=== PATIENT | female | born 1965 | race Caucasian/White ===

== ENCOUNTER → 2016-06-21 | Outpatient (CLI) | payer BC ==
--- NOTE | 2016-06-21 12:33 | MA ---
Screening Digital Mammogram With Tomosynthesis Clinical Indications: Routine screening. Technique: Standard digital cephalocaudal and tomosynthesis mediolateral oblique projections are obt ained. The digital images were processed by the [employer] computer aided detection system. Comparison: March 2015, December 2012, September 2011 and August 2010 Breast density: B; There are scattered fibroglandular densities. Findings: CAD was reviewed. No suspicious findings are identified. Impression: Negative mammogram. BI-RADS 1. Recommendation: Routine screening is recommended in one year. [facility] will send a result letter to the patient. Negative mammography should not preclude additional workup of a clinically suspicious finding. The patient's information is entered into a reminder system with a target due date for her next mammo gram.
== END ==
LOC: FIMAGING 11:40
DX: Z12.31 Encounter for screening mammogram for malignant neoplasm of breast (principal)
CPT/HCPCS: G0202

== ENCOUNTER → 2016-08-02 | Outpatient (CLI) | payer BC, OTHER | LOC: FIMAGING 10:02 | DX: M25.552 Pain in left hip (principal) | CPT/HCPCS: 78305; A9503 ==

== ENCOUNTER 2017-08-29 20:39 | Emergency (ER) | payer BC ==
[2017-08-29 21:15] VITALS: O2SAT 96
--- NOTE | 2017-08-29 21:54 | EDPHY ---
H & P Stated Complaint: DRANK TENSION TAMER TEA 1999, TOUNGE BLISTER/SWELLING,TOOK 2 ZYRTEC Time Seen by Provider: 08/29/17 21:53 HPI/ROS: HPI: This is a 52-year-old female who presents with Chief Complaint: DRANK TENSION TAMER TEA 2000, TONGUE BLISTER/SWELLING,TOOK 2 ZYRTEC Location: Mild Quality: Itching/sore Duration: 1 hr prior to arrival Signs and Symptoms: No shortness of breath, no wheezing, no difficulty speaking , + scratchy throat, no abdominal pain, no nausea, no vomiting Timing: Acute Severity: Mild Context: Patient has a history of nut allergy, drank tension time tea that contains hops in approximately 30 min leg started to develop sores on her tongue and have a scratchy throat. She took to Zyrtec tablet with mild relief. Denies and any other symptoms. Does not have an EpiPen of her own. Drove herself to the emergency room. Modifying Factors: Zyrtec Comment: ROS: see HPI Constitutional: No fever, no chills, no weight loss Eyes: No blurred vision Respiratory: No shortness of breath, no cough Cardiovascular: No chest pain Gastrointestinal: No nausea, no vomiting, no diarrhea Genitourinary: No dysuria Extremities: No myalgias Neurologic: No weakness, no numbness Skin: No rashes Hematologic: No bruising, no bleeding MEDICAL/SURGICAL/SOCIAL HISTORY: Medical history: Generally healthy. Does not take any regular medications. Surgical history: Denies Social history: Has children CONSTITUTIONAL: Cooperative, well-developed well-nourished adult female, awake and alert, no obvious distress HEENT: Atraumatic and normocephalic, PERRL, EOMI. Tympanic membranes clear. Oropharynx clear, no exudate and moist pink mucosa. No postpharyngeal edema. No angioedema. Airway patent. No lymphadenopathy. No meningismus. Cardiovascular: Normal S1/S2, regular rate, regular rhythm, without murmur rub or gallop. PULMONARY/CHEST: Symmetrical and nontender. Clear to auscultation bilaterally. Good air movement. No accessory muscle usage. ABDOMEN: Soft, nondistended, nontender, no rebound, no guarding, no peritoneal signs, no masses or organomegaly. No CVAT. EXTREMITIES: 2/2 pulses, strength 5/5, no deformities, no clubbing, no cyanosis or edema. NEUROLOGICAL: no focal neuro deficits. GCS 15. SKIN: Warm and dry, no erythema. no rash. Good capillary refill. Source: Patient Exam Limitations: No limitations - Personal History Current Tetanus/Diphtheria Vaccine: Yes - Medical/Surgical History Hx Asthma: No Hx Chronic Respiratory Disease: No Hx Diabetes: No Hx Cardiac Disease: No Hx Renal Disease: No Hx Cirrhosis: No Hx Alcoholism: No Hx HIV/AIDS: No Hx Splenectomy or Spleen Trauma: No Other PMH: x 3, tonsillectomy, PLASTIC SURG- FACE- DOG BITE, LEFT HIP SURG, MONO, HERPES, 2010 MINI-TUMITUCK - Social History Smoking Status: Never smoked Constitutional: Initial Vital Signs Temperature (C) 36.8 C 08/29/17 21:10 Heart Rate 83 08/29/17 21:10 Respiratory Rate 18 08/29/17 21:10 Blood Pressure 138/77 H 08/29/17 21:10 O2 Sat (%) 96 08/29/17 21:10 O2 Delivery Mode Room Air Allergies/Adverse Reactions: cephalexin monohydrate [From Keflex] Allergy (Intermediate, Verified 03/12/16 19 :53) swelling latex [Latex] Allergy (Intermediate, Verified 03/12/16 19:52) Gloves cause skin irritation sesame oil [Sesame] Allergy (Verified 08/29/17 21:08) Hazelnuts, Walnuts Allergy (Severe, Uncoded 03/12/16 19:52) Itchy throat [place] Allergy (Severe, Uncoded 03/12/16 19:52) Italian analgesic causes severe rash Mustard weed, birch pollen Allergy (Intermediate, Uncoded 03/12/16 19:52) Rhinitis Home Medications: Medication Instructions Recorded Acyclovir 800 mg PO 03/12/16 EPINEPHrine [Epipen 0.3 MG] 0.3 mg IM ONCE #2 syr 08/29/17 Methylprednisolone 08/29/17 Medical Decision Making ED Course/Re-evaluation: Vital Signs reviewed and stable upon arrival Given p.o. Benadryl 50 mg and prescription for EpiPen No signs of angioedema/anaphylaxis/respiratory distress/facial swelling Passed p.o. Trial prior to discharge. This patient was seen under the supervision of my secondary supervising physician. I evaluated care for this patient independently. Differential Diagnosis: Differential diagnosis includes but is not limited to food allergy contact dermatitis, anaphylaxis. Departure - Departure Disposition: Home, Routine, Self-Care Clinical Impression: Food allergy Condition: Good Instructions: Food Allergy (ED), Anaphylaxis (ED) Additional Instructions: Allergic Reaction: Return to the Emergency Department for lip, tongue, throat, or face swelling, or any trouble breathing or swallowing. Referrals: PCP Not In,Dictionary [Medical Doctor] - As per Instructions Prescriptions: EPINEPHrine [Epipen 0.3 MG] 0.3 mg IM ONCE #2 syr
[2017-08-29] MEDS ORDERED: diphenhydrAMINE 25 MG CAP PO ONE (21:59)
[2017-08-29 22:33] VITALS: BP 132/67; PULSE 74; RESP 16; TEMP 97.9
== END 2017-08-29 22:38 | disposition home or self-care (01) ==
DX: T78.1XXA Other adverse food reactions, not elsewhere classified, initial encounter (principal); Z91.040 Latex allergy status